=== PATIENT | female | born 2000 | race Caucasian/White ===

== ENCOUNTER 2023-01-25 16:27 | Outpatient (CLI) | payer OTHER, SELFPAY | END 2023-01-25 16:28 | disposition home or self-care (01) | LOC: NFLDREF 01-28 10:49 | PROVIDERS: Visit Provider Nurse Practitioner Family | DX: R30.0 Dysuria (principal); N39.0 Urinary tract infection, site not specified | CPT/HCPCS: 87086 ==

== ENCOUNTER 2025-06-29 20:55 | Emergency (ER) | payer OTHER, SELFPAY ==
--- OUTSIDE RECORDS SUMMARY | 2025-06-08 09:00 | XMS_ITS | Encounter Summary ---
Author Organization [facility] Address [address] [place] [id number] Care Team Providers Care Bog Worker Name Role Phone Stephanie Allen Primary Care Provider [phone] Reason for Visit * ReasonCommentsFollow upMigraineRLS Encounter Details DateTypeDepartmentCare Team (Latest Contact Info)Mdtppvychbk07/02/2025 9:00 AM CSTOffice Visit [facility] - [address] [place] [address] [phone] Alejandro Whitaker PA-C [address] [place] [address] [place] [id number] Migraine without aura and without status migrainosus, not intractable; RLS (restless legs syndrome) Social History Tobacco UseTypesPacks/DayYears UsedDateSmoking Tobacco: NeverSmokeless Tobacco: Current Comments:Vaping - on and off for 2 years now Alcohol UseStandard Drinks/WeekCommentsYes0 (1 standard drink = 0.6 oz pure alcohol)once or twice a monthCommentsUnknownSex and Gender Information ValueDate RecordedSex Assigned at BirthNot on fileLegal XrgIjjnqv17/16/2025 10:29 AM CDTGender IdentityNot on fileSexual OrientationNot on filedocumented as of this encounter Last Filed Vital Signs Vital SignReadingTime TakenCommentsBlood Pressure--Pulse--Temperature-- Respiratory Ldgu529308/09/2024 9:27 AM CSTOxygen Saturation--Inhaled Oxygen Concentration--Liujzp58.9 kg (154 lb)06/08/2025 9:27 AM GLYGyyhwx849.5 cm (5' 7.5)06/08/2025 9:27 AM CSTBody Mass Index23.7606/08/2025 9:27 AM CSTdocumented in this encounter Functional Status * RespAnswerDate of UhjjkvkbfsNzlrrc6172/02/2025 9:27 AM Alejandro Richey PA-C * HeightAnswerDate of LtavuwvwuyUdsian77.512 9:27 AM Alejandro Richey PA-C * WeightAnswerDate of EmvgjuedfpMuhlvm732235 9:27 AM Alejandro Richey PA-C * Rx Height and WeightQuestionAnswerDate of VjamovovefTmecwmUHM53.7108/09/2024 9:27 AM Alejandro Richey PA-C documented as of this encounter Mental Status * RespAnswerEntry KulfPqeyjm3937/02/2025 9:27 AM Alejandro Richey PA-C documented in this encounter Progress Notes * Alejandro Whitaker PA-C - 06/08/2025 9:00 AM CST 06/08/2025 Neurology Follow-up Note 9:28 AM ~~~~~~~~~~~~ Alejandro Whitaker PA-C Neurology ~~~~~~~~~~~ REPORT OF CONSULTATION Patient Name: Luis Armando Villasenor : 2000 Primary Care Physician: Stephanie Allen PA Consulting Physician: Alejandro Whitaker PA-C HPI: Luis Armando is seen in follow-up of common migraines, neck pain, and restless leg syndrome. She was last seen on 04/20/2025. She only recalls 1 another headache in April on the and has only had3 headaches so far in May. On May 24 2025 she had 1 that lasted all day and needed a couple doses of Maxalt to help with this headache. She is tolerating her current dose of gabapentin. She has noticed improvements in the restlessness in her legs with this medication. She is currently up to 600 mg nightly. She continues to watch out for migraine triggers. She continues to work with physical therapy for her neck tenderness and tightness. She feels like things are improving overall since starting on gabapentin and having Maxalt as needed for acute migraine care. PAST MEDICAL HISTORY Past Medical History: Diagnosis Date Headache Neck pain PAST SURGICAL HISTORY No past surgical history on file. ALLERGIES/SENSITIVITIES Allergies Allergen Reactions Doxycycline Vomiting Other Reaction(s): GI intolerance Nausea. CURRENT MEDS Current Outpatient Medications: etonogestreL (NEXPLANON) 68 mg Sdrm implant, Inject 1 each (68 mg) under the skin., Disp: , Rfl: gabapentin (NEURONTIN) 300 mg oral capsule, Take 2 caps qhs. (Take 2 hours before bed.), Disp: 180 capsule, Rfl: 3 rizatriptan (MAXALT) 10 mg oral tablet, Take 1 tablet (10 mg) by mouth as needed. May repeat after two hours. Maximum dose 30mg/24 hours., Disp: 12 tablet, Rfl: 11 SOCIAL HISTORY Social History Socioeconomic History Marital status: Single Spouse name: Not on file Number of children: Not on file Years of education: Not on file Highest education level: Not on file Occupational History Not on file Tobacco Use Smoking status: Never Smokeless tobacco: Current Tobacco comments: Vaping - on and off for 2 years now Substance and Sexual Activity Alcohol use: Yes Comment: once or twice a month Drug use: Never Sexual activity: Not on file Other Topics Concern Not on file Social History Narrative Not on file Social Drivers of Health Financial Resource Strain: Low Risk (01/13/2025) Received from [facility] Financial Resource Strain Difficulty of Paying Living Expenses: 3 Difficulty of Paying Living Expenses: Not on file Food Insecurity: No Food Insecurity (01/13/2025) Received from [facility] Food Insecurity Do you worry your food will run out before you are able to buy more?: 1 Transportation Needs: No Transportation Needs (01/13/2025) Received from [facility] Transportation Needs Does lack of transportation keep you from medical appointments?: 1 Does lack of transportation keep you from work, meetings or getting things that you need?: 1 Physical Activity: Not on file Stress: Not on file Social Connections: Socially Integrated (01/13/2025) Received from [facility] Social Connections Do you often feel lonely or isolated from those around you?: 0 Intimate Partner Violence: Not on file Housing Stability: Low Risk (01/13/2025) [facility] Housing Stability What is your housing situation today?: 1 FAMILY HISTORY Family History Problem Relation Name Age of Onset Scoliosis Mother Migraines Mother High Cholesterol Father High Blood Pressure Father Diabetes Father REVIEW OF SYSTEMS: 10 point ROS was otherwise negative. Resp. rate 16, height 5' 7.5 (1.715 m), weight 69.9 kg (154 lb). Exam: Patient was well groomed and appeared of appropriate age. HEENT: Extraocular movements were intact. No mucosal congestion. Neck: The neck was supple. There were mild myofascial tender points in the paracervical, trapezius,and levator scapula areas. Neurological examination: Higher mental functions: The patient was awake alert and oriented x3. Speech and language functionswere normal. Cranial nerves examination: Extraocular movements were intact. There was no disconjugate gaze. There were no facial sensory deficits. There was no facial asymmetry. The tongue and uvula were in the midline. The shoulder shrug was normal. CN II- XII normal. Motor examination: The tone was normal. There is no pronator drift. The strength in the proximal and distal muscle groups in both upper and lower extremities was normal at 5/5. Gait: The patient walked with a narrow-based gait. Assessment and Plan: Luis Armando is seen in follow-up of common migraines, neck pain, and RLS. She has been noticing improvement in all her symptoms since starting on gabapentin. Maxalt has been helpful for her headaches when needed. I will have her continue with her current dose of gabapentin to help with migraine prevention and to help control restlessness in her legs. She will continue to work with physical therapy to work on tender points and tightness in her neck and shoulders. She will continue to use Maxalt as needed foracute migraine care to help with her headaches acutely. She was encouraged to take this medication at the onset of her headaches and not to wait until the headaches get more intense. She will continue to watch out for migraine triggers. She was encouraged to work on a daily exercise program and to practice relaxation techniques. Her ferritin levels were in the normal range but on the low side of normal and her iron levels wereall normal. We will continue to monitor this but she will not start any iron supplement at this time. I will follow her back in 6 months or sooner if needed. I spent 30 min. With the patient in activities before, during and after the visit. 2024: Documentation of current mediations reviewed every visit 2. Does patient use tobacco? No, but she is vaping. 3. Patient has had no falls in calendar year 4. Does patient have Dementia? No Alejandro Whitaker PA-C Neurology [facility] [employer] documented in this encounter Plan of Treatment Not on file documented as of this encounter Visit Diagnoses Diagnosis Migraine without aura and without status migrainosus, not intractable Migraine without aura, without mention of intractable migraine without mention of status migrainosus RLS (restless legs syndrome) Restless legs syndrome (RLS) documented in this encounter Care Teams Team MemberRelationshipSpecialtyStart [place] [address] [place] [address] PCP - GeneralFamily Medicine01/20/25documented as of this encounter
--- OUTSIDE RECORDS SUMMARY | 2025-06-29 20:57 | XMS_ITS | Clinical Summary ---
Author Organization [facility] Address [address] [place] [address] Care Team Providers Care Quality Improvement Analyst Name Role Phone Stephanie Allen Primary Care Provider [phone] Allergies Active AllergyReactionsCriticalityNoted DateCommentsDoxycyclineGI Upset 10/04/2020 Nausea. Medications MedicationSigDispense QuantityRefillsLast FilledStart DateEnd DateStatus etonogestrel subdermal implant (NEXPLANON) 68 mg implant Inject 1 Each subcutaneous. Inserted Febctive meloxicam 15 mg tablet Indications:Midline low back pain without sciatica, unspecified chronicity, Tightness of neck,Headache syndromeTake 1 Tablet (15 mg) by mouth once daily. 14 Tablet 5Active Additional Information Patient not taking.Reported on 06/20/2025 rizatriptan (MAXALT) 10 mg tablet Take 10 mg by mouth.5Active gabapentin (NEURONTIN) 300 mg capsule Take 2 caps qhs. (Take 2 hours before bed.)5Active nitrofurantoin macrocrystals/monohydrate (Macrobid) 100 mg capsule Indications:Acute cystitis without hematuria,DysuriaTake 1 Capsule (100 mg) by mouth two times daily. 10 Capsule 5Active fluconazole (DIFLUCAN) 150 mg tablet Indications:Antibiotic-induced yeast infection1 tab daily, for 2 days. 2 Tablet 06/20/2025tive nitrofurantoin macrocrystals/monohydrate (Macrobid) 100 mg capsule Indications:Acute cystitis without hematuria,DysuriaTake 1 Capsule (100 mg) by mouth two times daily for 5 days. 10 Capsule /Discontinued(*Medication adjustment) fluconazole (DIFLUCAN) 150 mg tablet Indications:Antibiotic-induced yeast infection1 tab daily 2 Tablet 06/20/20240709/Discontinued(*Medication adjustment) fluconazole (DIFLUCAN) 150 mg tablet Indications:Antibiotic-induced yeast infection1 tab daily 2 Tablet 06/20/20240709/Discontinued(*Medication adjustment) Active Problems ProblemNoted DateDiagnosed DatePap smear for cervical cancer sfswtsymp17/19/2024 Overview (08/26/2023): 08/2023 NIL Plan: Pap due in 3 years Regular cdhuqwjlkev58/08/0873Tzvupdxhrmzdr15/08/2006mblyopia, unspecified 02/12/2006 Overview (02/12/2006): Refractive Resolved Problems ProblemNoted DateDiagnosed DateResolved DateEsotropia, txotfirnyfl95/03/2007 08/21/2023 Encounters DateTypeDepartmentCare HwbeJiihebkanxd67/16/2025 10:09 AM DIRECTIONAL DRILL OPERATOR - 06/22/2025 11:59 PM CSTHospital Encounter [facility] [address] [facility] [address] [place] [address] Stephanie Allen PA Nelson, Heidi, PT 06/22/2025Results Follow-Up [facility] [address] [address] Bailey De Souza NP 06/22/20253097Touleb54/14/2025 12:00 PM CSTOffice Visit [facility] [address] [address] Patrick William PA UTI (Dysuria, left flank pain - saturday)06/20/2025Telephone [facility] [address] [place] [address] Stephanie Allen PA Questions (the dosage amount needs clarification )06/20/20256959Gqzqxq64/09/2025 3:45 PM DIRECTIONAL DRILL OPERATOR - 06/15/2025 11:59 PM CSTHospital Encounter [address] [address] Stephanie Allen PA Holmvik, Kristin M, PT 06/15/20252978Suatsr81/25/2025 2:55 PM DIRECTIONAL DRILL OPERATOR - 06/01/2025 11:59 PM CSTHospital Encounter [address] [address] Stephanie Allen PA Holmvik, Kristin M, PT 06/01/20251787Hyggsc35/04/2025 3:43 PM DIRECTIONAL DRILL OPERATOR - 05/11/2025 11:59 PM CSTHospital Encounter [address] [address] Stephanie Allen PA Holmvik, Kristin M, PT 05/11/20252857Fbeiaw28/28/2025 9:15 AM CDT - 05/04/2025 11:59 PM CDTHospital Encounter [address] [address] Stephanie Allen PA Holmvik, Kristin M, PT 05/04/20255914Iribah25/21/2025 10:26 AM CDT - 04/27/2025 11:59 PM CDTHospital Encounter [address] [address] Stephanie Allen PA Holmvik, Kristin M, PT 04/27/2025Travelfrom Last 3 Months Immunizations ImmunizationAdministration DatesNext AlpASdA9510/14/2007,10/26/2003,2002, 2002,2002HIB PRP-OMP (PedvaxHIB)04/21/2003,2002,2002HPV 9 (Gardasil 9)07/04/2015,02/28/2015Hepatitis A (Peds)03/03/2008,10/08/2006 Hepatitis B (Peds)10/10/2018,04/21/2003,2002,2002Human Papilloma Virus Ezflsfk6903/03/2014Inactivated Polio Mvrytyh1310/14/2007,10/26/2003,2002 ,2002Influenza, CET490,03/03/2014MENINGOCOCCAL VACCINE 2 VIAL 2MO- 55YO (MENVEO)03/10/2021,03/03/2014MMR10/14/2007,10/26/2003Meningococcal Vaccine (Menactra)10/10/2018Tdap03/03/2014Varicella Yfdzgdz4610/14/2007,10/08/2006 Family History Medical HistoryRelationNameCommentsDiabetesFatherHypertensionFatherThyroid DiseaseMotherHypertensionPaternal GrandfatherRelationNameStatusCommentsBrother 1 AliveBrother 2AliveFatherAliveMotherAlivePaternal Grandfather Social History Tobacco UseTypesPacks/DayYears UsedDateSmoking Tobacco: NeverPassive Smoke Exposure: PastSmokeless Tobacco: Never Tobacco Cessation:Counseling Given: Not Answered Comments:smoker at home Alcohol UseStandard Drinks/WeekCommentsYes1 (1 standard drink = 0.6 oz pure alcohol)occ.PHQ-2AnswerDate RecordedPHQ-2 TOTAL [id number] ConnectionsAnswerDate RecordedDo you often feel lonely or isolated from those around you?Financial Resource StrainAnswerDate RecordedDifficulty of Paying Living Voiyqfme283/09/2025Difficulty of Paying Living ExpensesNot on file 01/13/2025Food InsecurityAnswerDate RecordedDo you worry your food will run out before you are able to buy more?Transportation NeedsAnswerDate RecordedDoes lack of transportation keep you from medical appointments?1 01/13/2025Does lack of transportation keep you from work, meetings or getting things that you need?Housing StabilityAnswerDate RecordedWhat is your housing situation today?UtilitiesAnswerDate RecordedDo you have trouble paying for utilities (for example, heat, electricity, water, phone)?1 01/13/2025CommentsNoSex and Gender InformationValueDate RecordedSex Assigned at BirthNot on fileLegal BitNxzzuj74/14/2013 7:12 AM CSTGender Identity Not on fileSexual OrientationNot on fileOccupationIndustryJob Start DateJob End DatestudentNot on fileNot on fileNot on file Obstetrics History GravidaParaTermPretermABIABSABEctopicMultipleLivingLive [id number] Last Filed Vital Signs Vital SignReadingTime TakenCommentsBlood Rzizyidr002/7906/20/2025 12:11 PM DIRECTIONAL DRILL OPERATOR Tcbom334806/20/2025 12:11 PM RRKQqhvjsgsljb95.3 ??C (97.4 ??F)06/20/2025 12:11 PM CSTRespiratory Swzt256208/21/2024 12:11 PM CSTOxygen Ryxfmfmvaa39%06/20/2025 12:11 PM CSTInhaled Oxygen Concentration--Flcleq23.3 kg (155 lb)06/20/2025 12:11 PM UAUOflphk885.6 cm (5' 7.57)01/13/2025 3:42 PM CDTBody Mass Index23.8701/13/2025 3:42 PM CDT Plan of Treatment DateTypeDepartmentCare Team (Latest Contact Info)Cpxeapzfwby85/30/2025 10:15 AM CSTAppointment [facility] [address] [place] [address] Aleah Kimble, PT [address] [place] [address] Health MaintenanceDue DateLast DoneCommentsHIV for age 15-Hepatitis C screening for age 18-7910/02/2020Tetanus tsoeamf87/Chlamydia for age 16-2402/21024808/21/2023epression screening for age 12+08/23/2024 08/23/2023, 4COVID-19 vaccine series (3 - 2024- season)2025 01/18/2021, 12/28/2020Influenza Vaccine (#1)/, 03/03/2014MI (ht and wt on same day) for age 18+/03/2025, 08/21/2023ap test for age 21-650HPV series for age 9-19Otrgjcgid44/28/2015, 02/28/2015, 03/03/2014Hepatitis B series for 19+Ycgardcop44/05/2019, 04/21/2003, 2002, Additional history existsPneumococcal series for age 6-49Aged OutNo longer eligible based on patient's age to complete this topic Procedures Procedure NamePriorityDate/TimeAssociated DiagnosisCommentsURINE CULTURERoutine 06/20/2025 12:17 PM DIRECTIONAL DRILL OPERATOR Dysuria URINE CULTURE INDICATED (QUEST REFLEX ONLY)Fwqenfq3706/20/2025 12:17 PM DIRECTIONAL DRILL OPERATOR Dysuria UA COMPLETE W/REFLEX CULTURE(QUEST)Agznphf6806/20/2025 12:17 PM DIRECTIONAL DRILL OPERATOR Dysuria GC CHLAMYDIA TRACH NLJNCIwylhkc60/14/2024 8:10 AM DIRECTIONAL DRILL OPERATOR Screening for STD (sexually transmitted disease) CELLAR SUPERVISOR THIN PREP PAP SCREEN WRZZZCPorfxnl91/14/2024 8:10 AM DIRECTIONAL DRILL OPERATOR Pap smear for cervical cancer screening from Last 3 Months or Most Recently Relevant to Health Maintenance Results * URINE CULTURE INDICATED (QUEST REFLEX ONLY) (06/20/2025 12:17 PM DIRECTIONAL DRILL OPERATOR)Component ValueRef RangeTest MethodAnalysis TimePerformed AtPathologist SignatureURINE CULTURE INDICATEDSEE NOTE06/20/2025 12:29 PM [facility] LABComment:CULTURE INDICATED - RESULTS TO FOLLOWSpecimen (Source)Anatomical Location / LateralityCollection Method / VolumeCollection TimeReceived TimeUrineURINE SPECIMEN / UnknownNon-Blood / Pvdvpkj3306/20/2025 12:17 PM CST06/20/2025 12:17 PM DIRECTIONAL DRILL OPERATOR Narrative Authorizing ProviderResult TypeResult StatusPhong Russell Le PAURINEFinal Result Performing OrganizationAddressCity/State/ZIP CodePhone Number [facility] [address] [place] [address], [facility] [address] [place] [address], * (ABNORMAL) UA Complete w/reflex* to UC [[id number]] (06/20/2025 12:17 PM DIRECTIONAL DRILL OPERATOR) ComponentValueRef RangeTest MethodAnalysis TimePerformed AtPathologist SignatureCOLORAMBER(A)ELRTUW8906/20/2025 12:29 PM [facility] LABAPPEARANCECLOUDY(A)CLEAR06/20/2025 12:29 PM [facility] LABSPECIFIC GRAVITY1.0251.001 - 1.035 06/20/2025 12:29 PM [facility] LABPH7.05.0 - 8. 12:29 PM [facility] SXDMUDSDRGGXKHLSCIGLYCA45/14/2025 12:29 PM [facility] KHDWBFWBEELFSNVEYOEOJXOXDRFA84/14/2025 12:29 PM [facility] LABKETONESTRACE(A)HMCGMBPD94/14/2025 12:29 PM [facility] LABOCCULT BLOOD3+(A)NEGATIVE 06/20/2025 12:29 PM [facility] LABPROTEIN2+ (A)OWBHXTNU73/14/2025 12:29 PM [facility] ZZHTLDINULGZACMPVUJOCSODTH25/14/2025 12:29 PM [facility] LABLEUKOCYTE ESTERASE1+(A)OGZXIFHG03/14/2025 12:29 PM [facility] LABWBC UA10-20(A)< OR = 5 /HPF 06/20/2025 12:29 PM [facility] LABRBC UA 20-40(A)< OR = 2 /HPF06/20/2025 12:29 PM [facility] LABSQUAMOUS EPITHELIAL CELLS UA0-5< OR = 5 /HPF06/20/2025 12:29 PM [facility] LABBACTERIA UAFEW(A)NONE SEEN /HPF 06/20/2025 12:29 PM [facility] LABNOTE UASEE NOTE06/20/2025 12:29 PM [facility] Comment: This urine was analyzed for the presence of WBC, RBC, bacteria, casts, and other formed elements. Only those elements seen were reported. Specimen (Source)Anatomical Location / LateralityCollection Method / Volume Collection TimeReceived TimeUrineURINE SPECIMEN / UnknownNon-Blood / Unknown 06/20/2025 12:17 PM CST06/20/2025 12:17 PM DIRECTIONAL DRILL OPERATOR Narrative Authorizing ProviderResult TypeResult StatusPhong Wells Le PAURINEFinal Result Performing OrganizationAddressCity/State/ZIP CodePhone Number [facility] [address] [address], [facility] [address] [place] [address], * URINE CULTURE (06/20/2025 12:17 PM DIRECTIONAL DRILL OPERATOR)ComponentValueRef RangeTest Method Analysis TimePerformed AtPathologist SignatureCULTURE, URINE, ROUTINESEE NOTE 06/22/2025 7:44 AM CSTQUEST DIAGNOSTICSComment: ??CULTURE, URINE, ROUTINE ?Micro Number: ?[id number] ??Test Status: ? Final ??Specimen Source: ?? Urine ??Specimen Quality: ??Adequate ??Result: ?Mixed genital juan pablo isolated. These superficial ? bacteria are not indicative of a urinary tract ? infection. No further organism identification is ? warranted on this specimen. If clinically ? indicated, recollect clean-catch, mid-stream ? urine and transfer immediately to Urine Culture ? Transport Tube. Specimen (Source)Anatomical Location / LateralityCollection Method / Volume Collection TimeReceived TimeUrineURINE SPECIMEN / UnknownNon-Blood / Unknown 06/20/2025 12:17 PM CST06/20/2025 12:17 PM DIRECTIONAL DRILL OPERATOR Narrative Authorizing ProviderResult TypeResult StatusPhong Wells Le PAMICROBIOLOGYFinal ResultPerforming OrganizationAddressCity/State/ZIP CodePhone Number [facility] [address] [address], * CELLAR SUPERVISOR THIN PREP PAP SCREEN IMAGED (08/21/2023 8:10 AM DIRECTIONAL DRILL OPERATOR)ComponentValueRef RangeTest MethodAnalysis TimePerformed AtPathologist SignatureCase Report Gynecologic Cytology Report ? Case: [id number] ? Authorizing Provider: ??Stephanie Allen PA ? Collected: ? 08/21/2023 0810 ? Ordering Location: ? [facility] ?Received: ?08/21/2023 0820 ? [facility] ? First Screen: ?Adia Musa ? Specimen: ?CELLAR SUPERVISOR ThinPrep Vial Screening, Cervical ? 08/26/2023 3:14 PM [facility] INTERPRETATION/RESULTNEGATIVE FOR INTRAEPITHELIAL LESION OR MALIGNANCY (NIL) (none)08/26/2023 3:14 PM [facility] at 1513 CSTORGANISM(S)Shift in juan pablo suggestive of bacterial ewwcbxkso47/19/2024 3:14 PM [facility]-CENTRAL LABORATORYSPECIMEN ADEQUACYSatisfactory for evaluation Endocervical component gakvvhb0708/26/2023 3:14 PM [facility]- CENTRAL LABORATORYDate of LMP2/ 3:14 PM [facility]-CENTRAL LABORATORYLast Pap Daten/a008/26/2023 3:14 PM [facility]-CENTRAL LABORATORYLast Pap ResultFirst Pap/Lsghhso9808/26/2023 3:14 PM [facility] LABORATORYAbnormal Pap or Pecos Bx in last 5 zcjcvWr3508/26/2023 3:14 PM [facility] Menstrual StatusHormonally Epsismejio15/19/2024 3:14 PM [facility]AL LABORATORYColp Bx Done RrvdyVw1708/26/2023 3:14 PM [facility] LABORATORYAdditional InformationNone given08/26/2023 3:14 PM CST[facility] LABORATORYComment: Cytology is screened at [facility] - [address], [place] [address] and [facility] - [address] [place] [address] and [facility] - [address] [place] [address] Interpreted at [facility] - [address], [place] [address] Automated BxfuckLesjbzbyuu69/19/2024 3:14 PM [facility] LABORATORYComment:Specimen processed successfully by automated lab technician device, [employer] Imaging System, [employer]NoteThe pap test is a screening technique, not a diagnostic procedure. It is used primarily to screen for squamous cancers and precursor lesions. Published studies have shown that it is subject to both false negative and false positive results. The pap test should not be used as the sole means to diagnose or exclude pre-malignant and malignant lesions. 08/26/2023 3:14 PM [facility] LABORATORYSpecimen (Source)Anatomical Location / LateralityCollection Method / VolumeCollection TimeReceived TimeOther (Cervical)Non-Blood / Lbxnvfr2508/21/2023 8:10 AM DIRECTIONAL DRILL OPERATOR 08/21/2023 8:20 AM DIRECTIONAL DRILL OPERATOR Narrative Authorizing ProviderResult TypeResult StatusStephanie Allen PAPATHOLOGY/CYTOLOGY Final ResultPerforming OrganizationAddressCity/State/ZIP CodePhone Number [facility] [address] [place] [address], [place] * Vaginal GC CHLAMYDIA TRACH PROBE (08/21/2023 8:10 AM DIRECTIONAL DRILL OPERATOR)ComponentValueRef RangeTest MethodAnalysis TimePerformed AtPathologist SignatureCHLAMYDIA PROBE Negative 08/21/2023 6:55 PM [facility] LABORATORYN GONORRHOEAE PROBENegative 08/21/2023 6:55 PM [facility] LABORATORYSpecimen (Source)Anatomical Location / LateralityCollection Method / VolumeCollection TimeReceived TimeOtherVAGINAL SWAB / UnknownNon- Blood / Nevhncq2108/21/2023 8:10 AM CST08/21/2023 8:20 AM DIRECTIONAL DRILL OPERATOR Narrative Authorizing ProviderResult TypeResult StatusAntoniotesha Alejandro JASWINDERROBIOLOGYFinal ResultPerforming OrganizationAddressCity/State/ZIP CodePhone Number [facility] [address] [place] [address], from Last 3 Months or Most Recently Relevant to Health Maintenance Insurance Care Teams Team MemberRelationshipSpecialtyStart [place] [address] [place] [address] PCP - GeneralPhysician Assistant08/21/23
--- OUTSIDE RECORDS SUMMARY | 2025-06-29 20:57 | XMS_ITS | Clinical Summary ---
Author Organization [facility] Address [address] [place] [address] Care Team Providers Care Water Treatment Operator Name Role Phone Stephanie Allen Primary Care Provider [phone] Allergies Active AllergyReactionsCriticalityNoted DateCommentsDoxycyclineVomiting 10/04/2020 Other Reaction(s): GI intolerance Nausea. Medications MedicationSigDispense QuantityRefillsLast FilledStart DateEnd DateStatus etonogestreL (NEXPLANON) 68 mg Sdrm implant Inject 1 each (68 mg) under the skin.Active gabapentin (NEURONTIN) 300 mg oral capsule Indications:Migraine without aura and without status migrainosus, not intractable,RLS (restless legs syndrome)Take 2 caps qhs. (Take 2 hours before bed.) 180 capsule 5Active rizatriptan (MAXALT) 10 mg oral tablet Indications:Migraine without aura and without status migrainosus, not intractableTake 1 tablet (10 mg) by mouth as needed. May repeat after two hours. Maximum dose 30mg/24 hours. 12 tablet 1115Active Active Problems ProblemNoted DateDiagnosed YvwdSkexojp43/05/2019Low back pain10/10/2018 Encounters DateTypeDepartmentCare CfehEnajecqchqc56/02/2025 9:00 AM CSTOffice Visit [facility] [address] [place] [address] Alejandro Whitaker PA-C Migraine without aura and without status migrainosus, not intractable; RLS (restless legs syndrome)04/21/2025Results Follow-Up [facility] [address] [place] [address] Alejandro Whitaker PA-C FERRITIN ([facility]), IRON AND TIBC ([facility])04/20/2025 8:30 AM CDTOffice Visit [address] [place] [address] Alejandro Whitaker PA-C Migraine without aura and without status migrainosus, not intractable (Primary Dx); RLS (restless legs syndrome)from Last 3 Months Immunizations ImmunizationAdministration DatesNext DueDTaP (Infanrix)10/14/2007,10/26/2003, 2002,2002,2002H1N1 Vzrlkbytu04/12/2010,05/24/2009HIB PRP-OMP 04/21/2003,2002,2002HPV 9-NCSLME1107/04/2015,02/28/2015HPV Skmdmkdvjkxl51/27/2014Hep A Ogjhlrdfq92/27/2008,10/08/2006Hep B Pediatric 10/10/2018,04/21/2003,2002,2002Influenza split virus (Fluzone Quadrivalent PF)02/28/2015,03/03/2014MMR10/10/2018,10/14/2007,10/26/2003 Meningococcal MCV4O (Menveo)03/10/2021Meningococcal MCV4P (Menactra)10/10/2018 Pfizer 12+ Yrs Monovalent COVID Vaccine (purple cap)01/18/2021,1Polio IPV10/14/2007,10/26/2003,2002,2002Td adult absorbed PF (2 Lf) 03/09/2021Tdap03/03/20145228Cjqfnsxbe33/08/2008,10/08/2006 Family History Medical HistoryRelationCommentsDiabetesFatherHigh Blood PressureFatherHigh CholesterolFatherMigrainesMotherScoliosisMotherRelationStatusCommentsFather Mother Social History Tobacco UseTypesPacks/DayYears UsedDateSmoking Tobacco: NeverSmokeless Tobacco: Current Tobacco Cessation:Ready to Q uit: No; Counseling Given: Yes Comments:Vaping - on and off for 2 years now Alcohol UseStandard Drinks/WeekCommentsYes0 (1 standard drink = 0.6 oz pure alcohol)once or twice a monthCommentsUnknownSex and Gender Information ValueDate RecordedSex Assigned at BirthNot on fileLegal BdnLrazfa78/16/2025 10:29 AM CDTGender IdentityNot on fileSexual OrientationNot on file Last Filed Vital Signs Vital SignReadingTime TakenCommentsBlood Pressure--Pulse--Temperature-- Respiratory Ljda572208/09/2024 9:27 AM CSTOxygen Saturation--Inhaled Oxygen Concentration--Wdrwae30.9 kg (154 lb)06/08/2025 9:27 AM AOUZhyeqr940.5 cm (5' 7.5)06/08/2025 9:27 AM CSTBody Mass Index23.7606/08/2025 9:27 AM PACE ANALYST Plan of Treatment Health MaintenanceDue DateLast DoneCommentsEvaluate Sexual Lhbyzfb59 2002 Hepatitis C Mfalzeqee2002Pap Smear2002Anxiety Follow-Up (SHAUN-7) 2003Depression Assessment (PHQ-2)2003Meningococcal B Vaccine (1 of 2 - Standard)2018Chlamydia/Gonorrhea Bmbimhwjj55/14/OVID-19 Vaccine (3 - 2024- season)/, 12/28/2020Influenza Vaccine (#1)/, 03/03/2014dult Tetanus Gndxtdy37/08/2020, 03/03/2014RSV Vaccines (1 - 1-dose 75+ series)2077HPV VaccineCompleted 07/04/2015, 02/28/2015, 03/03/2014Pneumococcal VaccineAged OutNo longer eligible based on patient's age to complete this topic Procedures Procedure NamePriorityDate/TimeAssociated DiagnosisCommentsIRON AND TIBC ([facility])Dqbablx2904/20/2025 8:24 AM CDT RLS (restless legs syndrome) FERRITIN ([facility])Mogxbai6404/20/2025 8:24 AM CDT RLS (restless legs syndrome) from Last 3 Months Results * IRON AND TIBC ([facility]) (04/20/2025 8:24 AM CDT)ComponentValueRef RangeTest MethodAnalysis TimePerformed AtPathologist SignatureIron Binding Capacity/TIBC ([facility])379074 - 450 ug/dLLABCORP 1UIBC ([facility])837124 - 425 ug/dLL[facility] 1 Iron ([facility])51261 - 159 ug/dLL[facility] 1Iron Saturation ([facility])3015 - 55 % [facility] 1Specimen (Source)Anatomical Location / LateralityCollection Method / VolumeCollection TimeReceived TxlxWagmw75/14/2025 8:24 AM CDT1 11:00 PM CDT Narrative [facility] 1 - 04/21/2025 8:10 AM CDT Performed at: [address] [place] [address] ??[id number] Research Fellow: Chacho Murphy MD, Phone: ??[phone] Authorizing ProviderResult TypeResult StatusDonsusana DENNY-ERICABCHAIDER ORDERABLESFinal ResultPerforming OrganizationAddressCity/State/ZIP CodePhone Number [facility] 1 * FERRITIN ([facility]) (04/20/2025 8:24 AM CDT)ComponentValueRef RangeTest Method Analysis TimePerformed AtPathologist SignatureFerritin ([facility])2015 - 150 ng/mLL[facility]P 1Specimen (Source)Anatomical Location / LateralityCollection Method / VolumeCollection TimeReceived QtisSsmcx47/14/2025 8:24 AM CDT 04/19/2025 11:00 PM CDT Narrative [facility] 1 - 04/21/2025 8:10 AM CDT Performed at: 01 - [facility] [address] [place], [place] ??[id number] Research Fellow: Chacho Murphy MD, Phone: ??[phone] Authorizing ProviderResult TypeResult StatusAlejandro DENNY-[facility] ORDERABLESFinal ResultPerforming OrganizationAddressCity/State/ZIP CodePhone Number [facility] 1 from Last 3 Months Insurance * Guarantor: Alecia Villasenor TypeRelation to PatientDate of BirthPhone Billing AddressPersonal/TvpymxUgdc2002 [address] [address] Care Teams Team MemberRelationshipSpecialty[place] [address] [place] [address] PCP - GeneralFamily Medicine01/20/25
--- OUTSIDE RECORDS SUMMARY | 2025-06-29 20:57 | XMS_ITS | Encounter Summary ---
Author Organization [facility] Address [address] [place] [address] Care Team Providers Care Insurance Account Specialist Name Role Phone Stephanie Allen Primary Care Provider [phone] Encounter Details DateTypeDepartmentCare Team (Latest Contact Info)Jozxkbstuab36/15/2025Results Follow-Up [facility] - [address] [place] [phone] Alejandro Whitaker PA-C [address] [place] [address] FERRITIN ([facility]), IRON AND TIBC ([facility]) Social History Tobacco UseTypesPacks/DayYears UsedDateSmoking Tobacco: NeverSmokeless Tobacco: Current Comments:Vaping - on and off for 2 years now Alcohol UseStandard Drinks/WeekCommentsYes0 (1 standard drink = 0.6 oz pure alcohol)once or twice a monthCommentsUnknownSex and Gender Information ValueDate RecordedSex Assigned at BirthNot on fileLegal TuiQkaeyv12/16/2025 10:29 AM CDTGender IdentityNot on fileSexual OrientationNot on filedocumented as of this encounter Plan of Treatment Not on file documented as of this encounter Visit Diagnoses Not on filedocumented in this encounter Care Teams Team MemberRelationshipSpecialtyStart [place] [address] [place], [place] [address] PCP - GeneralFamily Medicine01/20/25documented as of this encounter
--- NOTE | 2025-06-29 21:08 | XR_ITS ---
Patient: BILLY DUNN Facility:?[facility] Patient ID:?[id number] Site Patient ID:?[id number]. Site :?[id number] Study:?XRay-Extremity Left WRIST-06/29/2025 9:52:41 PM Ordering Physician:?PROVIDER TEMP Final Report: Indication: Wrist pain. Technique: Left wrist 3 views. Comparison: None. Findings: Bones: Nondisplaced intra-articular oblique fracture involving the distal radius. Joint spaces: Joint spaces are well maintained. No degenerative changes. Soft tissues: Mild wrist soft tissue swelling. Dictated by Timothy Frey MD @ 06/29/2025 10:14:39 PM (Electronic Signature)
[2025-06-29 21:10] VITALS: BP 155/80; PULSE 89; RESP 18; TEMP 36.7; O2SAT 99; BMI 23.6
--- NOTE | 2025-06-29 22:33 | ED_ITS ---
HPI - General Adult General Chief complaint: Extremity Pain/Injury, Upper Stated complaint: L shoulder/arm injury Time Seen by Provider: 06/29/25 21:22 History of Present Illness HPI narrative: CC: Left Wrist Injury pt. fell onto wrist while snowboarding. cms intact. 25-year-old woman presenting to the emergency department with concern of left wrist pain. Had been out learning to snowboard. Some point experienced more pain in her left wrist. No other injury sustained. No head injury. No abdominal or back pain noted. No specific elbow pain Related Data Home Medications ?Medication ?Instructions ?Recorded ?Confirmed No Known Home Medications 06/21/2306/08 Allergies Allergy/AdvReac Type Severity Reaction Status Date / Time doxycycline AdvReac Mild Upset Verified 06/29/25 21:10 Stomach Review of Systems Status of ROS: Reports: 6 or more systems reviewed and unremarkable except as noted in History and below [facility] Medical History Urinary tract infection ?N39.0 - Urinary tract infection, site not specified (ICD-10) Exam Narrative: Exam Narrative: pleasant. NAD but favoring her left wrist/arm. Breathing easily. Examination of the left upper extremity shows some swelling at the distal radius. Subtle bruising. Not really with snuffbox tenderness. Gingerly able to open her hand. Able to close her hand. palpation about the elbow and shoulder does not reproduce pain. She is able to supinate and pronate the forearm Though causes pain in the wrist. Const: Vital Signs, click to edit/add: Vital Signs - 24 hr 06/29/25 21:10 Temperature 98.0 F Pulse Rate [Right Pulse Oximeter] 89 Respiratory Rate 18 Blood Pressure [Ri ght Upper Arm] 155/80 H Pulse Oximetry 99 Oxygen Delivery Me thod Room Air Documenting provider has reviewed patient's vital signs: yes Course Vital Signs Vital signs: Initial Vital Signs Temperature 98.0 F 06/29/25 21:10 Temperature Source Temporal Artery Scan 06/29/25 21:10 Pulse Rate 89 06/29/25 21:10 Respiratory Rate 18 06/29/25 21:10 Blood Pressure 155/80 H 06/29/25 21:10 Blood Pressure Mean 105 06/29/25 21:10 Blood Pressure Position Sitting 06/29/25 21:10 Pulse Oximetry 99 06/29/25 21:10 Oxygen Delivery Method Room Air 06/29/25 21:10 Vital Signs Temperature 98.0 F 06/29/25 21:10 Pulse Rate 89 06/29/25 21:10 Respiratory Rate 18 06/29/25 21:10 Blood Pressure 155/80 H 06/29/25 21:10 Pulse Oximetry 99 06/29/25 21:10 Oxygen Delivery Method Room Air 06/29/25 21:10 Temperature 98.0 F 06/30/25 00:43 Pulse Rate 81 06/30/25 00:43 Respiratory Rate 18 06/30/25 00:43 Blood Pressure 138/74 06/30/25 00:43 Pulse Oximetry 99 06/30/25 00:43 Oxygen Delivery Method Room Air 06/30/25 00:43 Medical Decision Making MDM Narrative Medical decision making narrative: Differential includes scaphoid fracture though less likely. Possible scapholunate dissociation. Most likely I think is a distal radius fracture or wrist sprain. X-ray of the left wrist three view independently reviewed by me does show an oblique fracture extending into the intra-articular space. Nondisplaced. Salter-Rodríguez 2 ice pack. Does not feel she needs anything else at this time radiology over-read below Technique: Left wrist 3 views. Comparison: None. Findings: Bones: Nondisplaced intra-articular oblique fracture involving the distal radius. Joint spaces: Joint spaces are well maintained. No degenerative changes. Soft tissues: Mild wrist soft tissue swelling. Dictated by Timothy Frey MD @ 06/29/2025 10:14:39 PM (Electronic Signature) I did return to place a dorsal volar ortho glass splint Over the wrist. tolerated well. Placed in slight dorsal extension. see patient discharge plan for further discussion If needed, can ice as discussed. Wear this arm sling to allow for some elevation for more comfort. Call to Orthopedics to arrange follow-up for proper casting/splinting. Phone number is [phone]. I would anticipate this appointment to be scheduled for early next week. Can take up to 800 mg of ibuprofen or up to 1000 mg of acetaminophen per dose. As discussed though can also provide you with opiate pain medicine. I think should mostly clear by morning per your concern. Prescribing small quantity of Percocet from [facility]. Each tablet of Percocet contains 325 mg of acetaminophen and 5 mg of oxycodone. Discharge Plan Discharge Clinical Impression: Distal radial fracture Patient Disposition: Home w/ Parent or Adult Condition: Stable Additional Instructions: If needed, can ice as discussed. Wear this arm sling to allow for some elevation for more comfort. Call to Orthopedics to arrange follow-up for proper casting/splinting. Phone number is [phone]. I would anticipate this appointment to be scheduled for early next week. Can take up to 800 mg of ibuprofen or up to 1000 mg of acetaminophen per dose. As discussed though can also provide you with opiate pain medicine. I think should mostly clear by morning per your concern. Prescribing small quantity of Percocet from [facility]. Each tablet of Percocet contains 325 mg of acetaminophen and 5 mg of oxycodone. Prescriptions: No Action No Known Home Medications Follow Up/Referrals: Provider,Not a Local [Primary Care Provider, Family Practice] Stand Alone Forms: [facility] Info Instructions
[2025-06-30 00:43] VITALS: BP 138/74; PULSE 81; RESP 18; TEMP 36.7; O2SAT 99
== END 2025-06-30 00:44 | disposition home or self-care (01) ==
PROVIDERS: Emergency Provider Family Medicine
DX: S52.572A Other intraarticular fracture of lower end of left radius, initial encounter for closed fracture (principal); W00.0XXA Fall on same level due to ice and snow, initial encounter; Y93.23 Activity, snow (alpine) (downhill) skiing, snowboarding, sledding, tobogganing and snow tubing
CPT/HCPCS: 29125; 73110; 99283; 99284